=== PATIENT | male | born 1975 | race Caucasian/White ===

== ENCOUNTER → 2017-03-22 | Outpatient (CLI) | payer OTHER ==
[~2017-03-22] MED LIST: ABILIFY5 MG PO; AMITRIPTYLINE50 MG PO; AMOXICILLIN500 MG PO; HYDROCODONE BIT1 T11 PO; MOTRIN800 MG PO; PENICILLIN VK500 MG PO; ULTRAM50 MG PO; VICODIN 5/500 505 MG PO; VOLTAREN75 MG PO
== END | disposition home or self-care (01) ==
LOC: CARD 12:57
DX: Z79.899 Other long term (current) drug therapy (principal)

== ENCOUNTER 2017-04-12 22:52 | Emergency (ER) | payer OTHER ==
[~2017-04-12] VITALS: Ht 172.7 cm; Wt 63.5 kg
[2017-04-12] MEDS ORDERED: SUBOXONE 8 MG-1 EACH SL (22:58)
[2017-04-12] MEDS ORDERED: CYCLOBENZAPRINE5 M3 PO (23:33)
[2017-04-12] MEDS ORDERED: Motrin,Rufen800 MG PO (23:33)
== END 2017-04-12 23:57 | disposition home or self-care (01) ==
LOC: ED 22:52
DX: S40.022A Contusion of left upper arm, initial encounter (principal); S09.90XA Unspecified injury of head, initial encounter; F17.200 Nicotine dependence, unspecified, uncomplicated; V89.2XXA Person injured in unspecified motor-vehicle accident, traffic, initial encounter; Y93.89 Activity, other specified; Y92.89 Other specified places as the place of occurrence of the external cause; Y99.8 Other external cause status

== ENCOUNTER 2017-07-10 11:36 | Emergency (ER) | payer OTHER ==
[~2017-07-10] VITALS: Ht 172.7 cm; Wt 64.4 kg
[~2017-07-10 11:36] MED LIST changes: +CYCLOBENZAPRINE5 M3 PO; +Motrin,Rufen800 MG PO; +SUBOXONE 8 MG-1 EACH SL
[2017-07-10] MEDS ORDERED: ANUSOL HC30 GM T (13:47)
[2017-07-10] MEDS ORDERED: MIRALAX POWDER17 G1 PO (13:47)
[2017-07-11] MEDS ORDERED: AMITRIPTYLINE H75 MG PO (13:25)
[2017-07-11] MEDS ORDERED: NEURONTIN800 MG PO (13:25)
[2017-07-11] MEDS ORDERED: SEROQUEL100 MG PO (13:26)
== END 2017-07-10 14:00 | disposition home or self-care (01) ==
LOC: ED 11:36
DX: K64.5 Perianal venous thrombosis (principal); F17.200 Nicotine dependence, unspecified, uncomplicated

== ENCOUNTER → 2019-05-02 | Outpatient (CLI) | payer OTHER ==
[~2019-05-02] MED LIST changes: +AMITRIPTYLINE H75 MG PO; +ANUSOL HC30 GM T; +MIRALAX POWDER17 G1 PO; +NEURONTIN800 MG PO; +SEROQUEL100 MG PO
== END | disposition home or self-care (01) ==
LOC: US 03-14 14:00
DX: N50.9 Disorder of male genital organs, unspecified (principal)

== ENCOUNTER → 2020-01-09 | Outpatient (CLI) | payer OTHER ==
[2020-01-09 13:11] LABS: BASO % 0.2 % (0.0-1.0); EOS # 0.1 10*3/uL (0.0-0.4); EOS % 1.2 % (1.0-4.0); HEMATOCRIT 43.6 % (42.0-52.0); HEMOGLOBIN 13.9 g/dl (14.0-18.0); LYMPH # 1.9 10*3/uL (1.3-4.4); LYMPH % 18.5 % (27.0-41.0); MEAN CORPUSCULAR HGB CONC 31.9 g/dl (33.0-37.0); MEAN PLATELET VOLUME 11.5 fl (9.6-12.3); MONO # 0.6 10*3/uL (0.1-1.0); MONO % 5.5 % (3.0-9.0); NEUT # 7.5 10*3/uL (2.3-7.9); NEUT % 74.3 % (47.0-73.0); PLATELET COUNT AUTOMATED 131 10*3/uL (130-400); RED BLOOD COUNT 4.64 10*6/uL (4.50-5.90); RED CELL DISTRI WIDTH 12.9 % (0-14.5); WHITE BLOOD COUNT 10.1 10*3/uL (4.8-10.8)
[2020-01-09 13:39] LABS: ALBUMIN 4.2 gm/dl (3.1-4.5); BUN 11 mg/dl (7-24); CHLORIDE 104 mmol/L (98-107); POTASSIUM 3.8 mmol/L (3.5-5.1); SGOT/AST 36 IU/L (3-35); SGPT/ALT 36 U/L (12-78); SODIUM 136 mmol/L (136-145)
[2020-01-09 13:49] LABS: ALKALINE PHOSPHATASE 113 U/L (45-117); CREATININE 0.96 mg/dL (0.70-1.30); LDH 212 U/L (87-241); T3 UPTAKE 29 % (31-39)
[2020-01-09 13:53] LABS: BETA-HCG, TUMOR MARKER < 1.0 mIU/mL (<1)
[2020-01-10 05:05] LABS: AFP TUMOR MARKER 1.6 ng/mL (0.0-8.3)
[2020-01-10 06:07] LABS: FOLLICLE STIMULATING HORMONE 40.2 mIU/mL (1.5-12.4); LUTEINIZING HORMONE 10.5 mIU/mL (1.7-8.6); PROGESTERONE 0.3 ng/mL (0.0-0.5); PROLACTIN 5.3 ng/mL (4.0-15.2)
== END | disposition home or self-care (01) ==
LOC: LAB 12:41
PROVIDERS: Nurse Practitioner Family
DX: N50.89 Other specified disorders of the male genital organs (principal)

== ENCOUNTER → 2020-03-02 | Outpatient (CLI) | payer OTHER ==
[2020-03-02 11:38] LABS: LDH 222 U/L (87-241)
[2020-03-02 11:53] LABS: BETA-HCG, TUMOR MARKER < 1.0 mIU/mL (<1)
== END | disposition home or self-care (01) ==
LOC: LAB 09:37 → CT 10:00
PROVIDERS: Nurse Practitioner Family
DX: C62.90 Malignant neoplasm of unspecified testis, unspecified whether descended or undescended (principal); R91.8 Other nonspecific abnormal finding of lung field

== ENCOUNTER 2021-01-01 22:02 | Emergency (ER) | payer OTHER ==
[~2021-01-01] VITALS: Ht 172.7 cm; Wt 63.5 kg
== END 2021-01-01 22:40 | disposition home or self-care (01) ==
LOC: ED 22:02
DX: F41.0 Panic disorder [episodic paroxysmal anxiety] (principal); F17.200 Nicotine dependence, unspecified, uncomplicated; Z79.899 Other long term (current) drug therapy; Z98.890 Other specified postprocedural states

== ENCOUNTER 2021-04-01 22:22 | Emergency (ER) | payer OTHER ==
[~2021-04-01] VITALS: Ht 172.7 cm; Wt 63.5 kg
[2021-04-01 22:45] LABS: BASO % 0.2 % (0.0-1.0); EOS # 0.2 10*3/uL (0.0-0.4); EOS % 2.7 % (1.0-4.0); HEMATOCRIT 39.2 % (42.0-52.0); LYMPH # 1.7 10*3/uL (1.3-4.4); LYMPH % 30.5 % (27.0-41.0); MEAN CELL VOLUME 89.7 fl (80.0-94.0); MEAN CORPUSCULAR HGB 29.3 pg (27.0-31.0); MEAN CORPUSCULAR HGB CONC 32.7 g/dl (33.0-37.0); MEAN PLATELET VOLUME 10.4 fl (9.6-12.3); MONO # 0.4 10*3/uL (0.1-1.0); MONO % 7.3 % (3.0-9.0); NEUT # 3.3 10*3/uL (2.3-7.9); NEUT % 59.1 % (47.0-73.0); PLATELET COUNT AUTOMATED 168 10*3/uL (130-400); RED BLOOD COUNT 4.37 10*6/uL (4.50-5.90); RED CELL DISTRI WIDTH 12.7 % (0-14.5); WHITE BLOOD COUNT 5.6 10*3/uL (4.8-10.8)
[2021-04-01 23:01] LABS: ALBUMIN 3.7 gm/dl (3.1-4.5); ALKALINE PHOSPHATASE 141 U/L (45-117); BUN 13 mg/dl (7-24); CHLORIDE 106 mmol/L (98-107); CREATININE 1.01 mg/dL (0.70-1.30); POTASSIUM 3.6 mmol/L (3.5-5.1); SGOT/AST 35 IU/L (3-35); SGPT/ALT 44 U/L (12-78); SODIUM 138 mmol/L (136-145); TOTAL PROTEIN 7.4 gm/dL (6.4-8.2)
[2021-04-01 23:02] LABS: ETHYL ALCOHOL < 3.0 mg/dl (<3)
[2021-04-01 23:17] LABS: URINE AMPHETAMINES > 1000 (1000ng/ml); URINE BARBITURATES < 200 (200ng/ml); URINE BENZODIAZEPINES < 200 (200ng/ml); URINE CANNABINOIDS (THC) > 50 (50ng/ml); URINE COCAINE > 300 (300ng/ml); URINE METHADONE < 300 (300ng/ml); URINE OPIATES < 300 (300ng/ml)
[2021-04-01 23:22] LABS: URINE PHENCYCLIDINE < 25 (25ng/ml)
== END 2021-04-01 23:32 ==
LOC: ED 22:22
PROVIDERS: Internal Medicine
DX: F10.129 Alcohol abuse with intoxication, unspecified (principal); Z79.899 Other long term (current) drug therapy; Y90.1 Blood alcohol level of 20-39 mg/100 ml

== ENCOUNTER 2021-12-27 18:59 | Emergency (ER) | payer OTHER ==
[~2021-12-27] VITALS: Ht 167.6 cm; Wt 63.5 kg
[2021-12-27 19:40] LABS: BASO % 0.2 % (0.0-1.0); EOS % 0.1 % (1.0-4.0); HEMATOCRIT 44.6 % (42.0-52.0); LYMPH % 10.6 % (27.0-41.0); MEAN CELL VOLUME 90.8 fl (80.0-94.0); MEAN CORPUSCULAR HGB 29.1 pg (27.0-31.0); MEAN CORPUSCULAR HGB CONC 32.1 g/dl (33.0-37.0); MEAN PLATELET VOLUME 10.1 fl (9.6-12.3); MONO # 1.4 10*3/uL (0.1-1.0); MONO % 7.5 % (3.0-9.0); NEUT # 15.1 10*3/uL (2.3-7.9); PLATELET COUNT AUTOMATED 178 10*3/uL (130-400); RED BLOOD COUNT 4.91 10*6/uL (4.50-5.90); RED CELL DISTRI WIDTH 12.9 % (0-14.5); WHITE BLOOD COUNT 18.7 10*3/uL (4.8-10.8)
[2021-12-27 20:06] LABS: BILIRUBIN Negative (Negative); BLOOD 1+ (Negative); CLARITY Clear (Clear); COLOR Yellow (Yellow); GLUCOSE Negative (Negative); KETONE Trace (Negative); LEUKO ESTERASE Negative (Negative); NITRITE Negative (Negative)
[2021-12-27 20:07] LABS: ALKALINE PHOSPHATASE 142 U/L (45-117); BUN 10 mg/dl (7-24); CHLORIDE 100 mmol/L (98-107); CPK 51 U/L (39-308); CREATININE 0.81 mg/dL (0.70-1.30); SGOT/AST 40 IU/L (3-35); SGPT/ALT 60 U/L (12-78); SODIUM 131 mmol/L (136-145); TOTAL PROTEIN 7.9 gm/dL (6.4-8.2)
[2021-12-27 20:37] LABS: BACTERIA 1+; WBC 0-2 wbc/hpf (0-5)
== END 2021-12-27 21:46 | disposition home or self-care (01) ==
LOC: ED 18:59
PROVIDERS: Internal Medicine
DX: M54.50 Low back pain, unspecified (principal); D72.829 Elevated white blood cell count, unspecified; F15.90 Other stimulant use, unspecified, uncomplicated; R79.89 Other specified abnormal findings of blood chemistry

== ENCOUNTER 2022-10-24 01:54 | Emergency (ER) | payer OTHER ==
[~2022-10-24] VITALS: Ht 180.3 cm; Wt 70.8 kg
[2022-10-24 02:53] LABS: BASO % 0.6 % (0.0-1.0); EOS # 0.2 10*3/uL (0.0-0.4); EOS % 4.4 % (1.0-4.0); HEMATOCRIT 39.8 % (42.0-52.0); LYMPH # 1.6 10*3/uL (1.3-4.4); LYMPH % 32.6 % (27.0-41.0); MEAN CELL VOLUME 90.7 fl (80.0-94.0); MEAN CORPUSCULAR HGB 29.6 pg (27.0-31.0); MEAN CORPUSCULAR HGB CONC 32.7 g/dl (33.0-37.0); MEAN PLATELET VOLUME 10.3 fl (9.6-12.3); MONO # 0.3 10*3/uL (0.1-1.0); MONO % 6.7 % (3.0-9.0); NEUT # 2.7 10*3/uL (2.3-7.9); NEUT % 55.3 % (47.0-73.0); PLATELET COUNT AUTOMATED 194 10*3/uL (130-400); RED BLOOD COUNT 4.39 10*6/uL (4.50-5.90); RED CELL DISTRI WIDTH 12.8 % (0-14.5); WHITE BLOOD COUNT 4.8 10*3/uL (4.8-10.8)
[2022-10-24 03:08] LABS: ALKALINE PHOSPHATASE 91 U/L (46-116); BUN 13 mg/dl (9-23); CHLORIDE 104 mmol/L (98-107); CREATININE 0.97 mg/dL (0.70-1.30); POTASSIUM 3.8 mmol/L (3.4-5.1); SGPT/ALT 21 U/L (10-49); SODIUM 138 mmol/L (136-145)
== END 2022-10-24 03:21 | disposition short-term general hospital (02) ==
LOC: ED 01:54
PROVIDERS: Emergency Medicine
DX: S02.0XXA Fracture of vault of skull, initial encounter for closed fracture (principal); S06.319A Contusion and laceration of right cerebrum with loss of consciousness of unspecified duration, initial encounter; G93.89 Other specified disorders of brain; Z98.890 Other specified postprocedural states; Y00.XXXA Assault by blunt object, initial encounter; Y93.89 Activity, other specified; Y92.481 Parking lot as the place of occurrence of the external cause; Y99.8 Other external cause status

== ENCOUNTER 2023-02-12 12:19 | Emergency (ER) | payer OTHER ==
[~2023-02-12] VITALS: Ht 172.7 cm; Wt 68.9 kg
== END 2023-02-12 12:45 | disposition left against medical advice (07) ==
LOC: ED 12:19
DX: T65.94XA Toxic effect of unspecified substance, undetermined, initial encounter (principal); Z98.890 Other specified postprocedural states; Y92.89 Other specified places as the place of occurrence of the external cause

== ENCOUNTER 2023-10-04 17:24 | Emergency (ER) | payer OTHER ==
[~2023-10-04] VITALS: Ht 172.7 cm; Wt 68.0 kg
[2023-10-04] MEDS ORDERED: AMOX-CLAV 875-1 EACH PO (19:02)
== END 2023-10-04 20:25 | disposition home or self-care (01) ==
LOC: ED 17:24
DX: H66.92 Otitis media, unspecified, left ear (principal); Z98.890 Other specified postprocedural states

== ENCOUNTER 2023-10-28 19:39 | Emergency (ER) | payer OTHER ==
[~2023-10-28] VITALS: Ht 172.7 cm; Wt 70.3 kg
[~2023-10-28 19:39] MED LIST changes: +AMOX-CLAV 875-1 EACH PO
[2023-10-28] MEDS ORDERED: PREDNISONE50 MG PO (21:00)
== END 2023-10-28 21:09 | disposition home or self-care (01) ==
LOC: ED 19:39
DX: H60.92 Unspecified otitis externa, left ear (principal); Z79.2 Long term (current) use of antibiotics; Z79.899 Other long term (current) drug therapy